=== PATIENT | female | born 1975 | race Caucasian/White ===

== ENCOUNTER 2017-01-12 07:00 | Inpatient (IN) ==
[2017-01-07 16:00] LABS: MANUAL DIFF NEEDED? NO; URINE MICRO REVIEW NEEDED? NO; URINE SOURCE CLEAN CATCH
[2017-01-07 16:05] LABS: BASO% 0.5 % (0.0-0.8); BILIRUBIN URINE NEGATIVE (NEGATIVE); BLOOD URINE NEGATIVE (NEGATIVE); COLOR YELLOW; EOS# 0.12 X1000 (0.0-0.7); EOS% 1.5 % (0.0-10.0); GLUCOSE URINE NEGATIVE (NEGATIVE); HEMATOCRIT 42.7 % (37.0-47.0); HEMOGLOBIN 14.1 g/dL (12.0-16.0); IMM GRAN# 0.02 X1000 (0.0-0.04); IMM GRAN% 0.2 % (0.0-0.5); LEUKOCYTES URINE SMALL (NEGATIVE); LYMPH# 2.16 X1000 (1.2-3.4); LYMPH% 26.7 % (20.5-51.1); MCH 29.1 PG (27-31); MCV 88.2 FL (81-99); MONO# 0.69 X1000 (0.11-0.59); MONO% 8.5 % (1.7-9.3); MPV 12.1 FL (7.4-10.4); NEUT% 62.6 % (42.2-75.2); NITRITE URINE NEGATIVE (NEGATIVE); PH URINE 6.5; PLT 203 X1000 (130-400); PROTEIN URINE NEGATIVE (NEGATIVE); RBC 4.84 XMIL (4.2-5.4); SP GRAVITY URINE 1.017; TURBIDITY URINE CLEAR (CLEAR); UR EPITHELIAL CELLS <10 /HPF (<10); URINE BACTERIA NEGATIVE /HPF; URINE RBC <10 /HPF (<10); URINE WBC <10 /HPF (<10); UROBILINOGEN URINE NORMAL (NORMAL)
--- NOTE | 2017-02-01 11:10 | HISTORY AND PHYSICAL ---
HISTORY OF PRESENT ILLNESS: Ryan is a 41-year-old, , white female, para 1, with a history of a for twin boys, being admitted at this time for a total abdominal hysterectomy with left salpingo-oophorectomy and right salpingectomy. Ryan has had an ongoing problem with abnormal bleeding, mostly in the form of menorrhagia, severe dysmenorrhea and pelvic pain. None of this has responded to any conservative approaches. She feels that she is ready to move on in the direction of the proposed procedure. We did discuss the management of both ovaries and she relates that the left side is the one that seems to give her the most issues. She would prefer to leave the right ovary, assuming we do not find anything that would be a strong indication to remove it at the time of the surgery. PAST MEDICAL HISTORY: Other than the above, also significant for tubal ligation. She has also had kidney stones and had lithotripsy. MEDICATIONS: Include Relpax p.r.n. ALLERGIES: She has no known allergies. FAMILY HISTORY: There is diabetes in her family. SOCIAL HISTORY/REVIEW OF SYSTEMS: For the most part noncontributory. PHYSICAL EXAMINATION: GENERAL: Exam is that of a well-developed, well-nourished, white female, in no acute distress. VITAL SIGNS: Stable and noted on the chart. HEENT: Unremarkable. NECK: Without nodes or thyromegaly. HEART: Regular without murmurs, gallops, or rubs. LUNGS: Clear. BREASTS: Without mass or tenderness. ABDOMEN: Soft, nontender. No masses. PELVIC: Normal external female genitalia. Vagina is clean. Cervix, no lesions. Uterus normal size, mid position. No adnexal masses. Rectovaginal normal. EXTREMITIES: Without tenderness or edema. NEUROLOGICAL: Grossly normal. ASSESSMENT: 1. Menorrhagia. 2. Abnormal uterine bleeding. 3. Dysmenorrhea. 4. Chronic pelvic pain mostly on the left side. PLAN: Total abdominal hysterectomy, left salpingo-oophorectomy and right salpingectomy. It should be noted that we did discuss the nature of the procedure. The risk involved, risk of anesthesia, other issues such as potential injury to surrounding structures, infection, hemorrhage and even . We did talk about the possibility of there being scarring around the cervix from her previous and if that were to be significant, that sometimes a supracervical hysterectomy would be done and she understood the rationale behind that. We also discussed the usual length of hospitalization, recuperation time at home and the restrictions therein, and overall, she felt well informed and I did speak with Ryan again this morning just to check and see if she had thought of any other questions regarding the surgery to be done tomorrow. Overall, again she felt well informed and had no further questions. cc: MD Too Velasquez MD
[2017-02-02] MEDS ORDERED: REGLAN ONE (05:31)
[2017-02-02] MEDS ORDERED: PEPCID ONE (05:31)
[2017-02-02] MEDS ORDERED: KEFZOL 1 GM/D5W 1 GM/50 ML IVPB ONE (05:32)
[2017-02-02] MEDS ORDERED: LR 1,000 ML ONE ×2 (05:32→09:24)
[2017-02-02] MEDS ORDERED: XYLOCAINE-MPF 2% ONE (06:37)
[2017-02-02] MEDS ORDERED: DIPRIVAN 1% ONE (06:37)
[2017-02-02] MEDS ORDERED: QUELICIN (DOSE) ONE (06:38)
[2017-02-02] MEDS ORDERED: FENTANYL ONE (07:01)
[2017-02-02] MEDS ORDERED: ZEMURON ONE (07:09)
[2017-02-02] MEDS ORDERED: ZOFRAN ONE (07:13)
[2017-02-02] MEDS ORDERED: DECADRON ONE (07:13)
[2017-02-02] MEDS ORDERED: ROBINUL ONE ×2 (07:16→07:51)
[2017-02-02 07:22] LABS: URINE MICRO REVIEW NEEDED? NO; URINE SOURCE CATH
[2017-02-02] MEDS ORDERED: TORADOL ONE (07:27)
[2017-02-02] MEDS ORDERED: EXPAREL 1.3% ONE (07:48)
[2017-02-02] MEDS ORDERED: MARCAINE 0.25% PF ONE (07:48)
[2017-02-02] MEDS ORDERED: SODIUM CHLORIDE 0.9% 20 ML ONE (07:48)
[2017-02-02] MEDS ORDERED: NEOSTIGMINE ONE (07:53)
[2017-02-02] MEDS ORDERED: SODIUM CHLORIDE 0.9% 10 ML ONE (08:27)
[2017-02-02] MEDS ORDERED: OFIRMEV 1000 MG/ISOTONIC SOLN 1,000 MG/100 ML BOTTLE ONE (08:41)
[2017-02-02] MEDS ORDERED: DILAUDID PCA VIAL ONE (08:42)
[2017-02-02] MEDS: DILAUDID ONE ×2 (08:43→08:50)
[2017-02-02] MEDS ORDERED: PHENERGAN ONE (09:01)
[2017-02-02 09:05] LABS: COLOR YELLOW; UR EPITHELIAL CELLS <10 /HPF (<10); URINE BACTERIA NEGATIVE /HPF; URINE RBC <10 /HPF (<10); URINE WBC <10 /HPF (<10)
[2017-02-02 09:06] LABS: BILIRUBIN URINE NEGATIVE (NEGATIVE); BLOOD URINE NEGATIVE (NEGATIVE); GLUCOSE URINE NEGATIVE (NEGATIVE); LEUKOCYTES URINE NEGATIVE (NEGATIVE); NITRITE URINE NEGATIVE (NEGATIVE); PH URINE 5.5; PROTEIN URINE NEGATIVE (NEGATIVE); SP GRAVITY URINE 1.019; TURBIDITY URINE CLEAR (CLEAR); UROBILINOGEN URINE NORMAL (NORMAL)
[2017-02-02] MEDS ORDERED: HYDROXYZINE PO PRN (09:26)
[2017-02-02] MEDS ORDERED: ZOFRAN IV PRN (09:26)
[2017-02-02] MEDS ORDERED: SODIUM CHLORIDE 0.9% INJ PRN (09:26)
[2017-02-02] MEDS ORDERED: BENADRYL IV PRN (09:26)
[2017-02-02] MEDS ORDERED: PHENERGAN IV PRN (09:26)
[2017-02-02] MEDS ORDERED: LR 1,000 ML IV SCH (09:26)
[2017-02-02] MEDS ORDERED: DILAUDID PCA VIAL IV PRN (09:26)
[2017-02-02] MEDS ORDERED: NARCAN 0.4 MG in LR 1,000 ML IV PRN (09:26)
[2017-02-02] MEDS ORDERED: NARCAN IV PRN (09:26)
--- NOTE | 2017-02-02 09:50 | OPERATIVE NOTE ---
PROCEDURE DATE: 02/02/2017 SURGEON: Juvenal Villalba MD. STAMPER BLOCKER: Too Hammonds MD. ANESTHESIA: General, Dr. Ruiz, who also did a tap block at the end. PREOPERATIVE DIAGNOSES: 1. Abnormal uterine bleeding, mostly in the form of menorrhagia. 2. Severe dysmenorrhea. 3. Chronic pelvic pain, mostly on the left side. PROCEDURES PERFORMED: 1. Total abdominal hysterectomy. 2. Left salpingo-oophorectomy and right salpingectomy. 3. Also, some adhesiolysis. OPERATIVE NOTE: Ryan was brought to the operating room, and after general anesthesia had been induced, she was prepped and draped in the usual sterile fashion in the supine position with a Wallace catheter in place. The abdomen was entered going through a Pfannenstiel incision in the customary manner and once the peritoneum was entered, we inserted the Gigi retractor and using 2 moist lap packs, as well as the self-retaining bladder blade, we were able to pack the bowel superiorly and out of the field of surgery and gain access to the pelvic contents. The uterus was grasped and elevated with a Rodrigo clamp. We then identified some adhesions to the left adnexa, which we took some of those down. Ultimately, we were able to visualize the infundibulopelvic ligament and using the LigaSure in a stepwise manner, we clamped, cauterized and transected our way across the infundibulopelvic ligament and on across the mesosalpinx and over to and through the round ligament on the left side. Then, the left adnexal structures were extirpated. Then on the right-hand side, we had hoped to be able to preserve her right ovary. It appeared to be normal. We elevated the fallopian tube and along the mesosalpinx, we were able to use the LigaSure again to clamp, cauterize and transect to remove the left fallopian tube. We then clamped, cauterized and transected across the uteroovarian ligament and tube to extirpate the uterus away from the right adnexa, thereby preserving the function of the right ovary. This was again carried forward to the round ligament at its attachment to the uterus and we carried it one step beyond that on each side as we approached the reflected bladder peritoneum. Hemostasis was excellent from the use of the LigaSure, and then using mostly sharp dissection, but some blunt dissection, created an incision into the reflected peritoneum and took down some bladder flap adhesions from her previous , and in a stepwise manner, mobilized the bladder down and away from the cervix. Then, Erasto clamps were placed across the uterine vessels on each side. This was then incised and suture ligated using #0 Polysorb which we employed throughout. In a stepwise manner, we continued to work our way down the paracervical tissue to clamp, transect and suture ligate the remaining paracervical attachments to the cervix and once we reached the uterosacral ligaments and ultimately into the upper angle of the vagina on each side, we tagged that stitch for identification purposes. The remainder of the vaginal attachments to the cervix were then circumscribed away using the Teodoro scissors and the specimen was then passed off the table. The anterior and posterior leafs of the vagina were then grasped with Erasto clamps, and we placed [id number] sutures on each angle, tacked to the uterosacrals for support purposes and then 3 more [id number] style stitches across the midpoint of the cervix to provide good closure, as well as hemostasis. There was one small oozing point along the edge of the bladder flap, which we controlled carefully with the electrocautery. At this point, we then irrigated the pelvic cavity a couple of times inspecting for hemostasis, which was found to be good throughout as we inspected from one pedicle to the next, from the right side to the left and back and confirmed good hemostasis throughout. At this point, the excess suture material was cut. The lap packs were removed and accounted for as was the self-retaining Gigi retractor and we then closed the abdominal incision first by reapproximating the peritoneum with a running 2-0 Polysorb. The subfascial plane was then cleaned and inspected and the fascia was run back together using 2 separate strands of #1 Polysorb, one being run from the right-hand angle over to the midpoint and the other from the left hand angle over to the midpoint. Subcutaneous layer was controlled hemostatically with the electrocautery and the skin edges were then brought together using the surgical stapler. We did undermine a small section of the left side of the incision just to flatten and even up the incision. Once this was all done and the elizabeth were in place, a sterile dry gauze pressure dressing was applied. Dr. Ruiz came in to do the TAP block. Our estimated blood loss for the procedure had been about 50 mL with 75 mL of clear urine output and Ryan tolerated the procedure well. She was awakened and transferred to the stretcher and to the recovery room in stable condition, draining clear urine in the Wallace catheter bag. It should be noted that all of our needle, sponge and instrument counts were correct at the end the case and also should be noted that I did speak with her outside of the waiting area to give him a report to let him know that she had done well. That we encountered no unexpected findings and he felt that all of his questions had been answered and that he was well informed and was pleased with the report. cc: MD Too Velasquez MD
[2017-02-02] MEDS ORDERED: RELPAX PO PRN (09:55)
[2017-02-02] MEDS: LR 1,000 ML IV SCH ×3 (11:46→23:18)
[2017-02-02] MEDS: PERIDEX MT SCH ×2 (11:46→23:18)
--- NOTE | 2017-02-02 13:13 | PROGRESS NOTE ---
DATE: 02/02/2017 Ryan is now about 5 hours status post total abdominal hysterectomy with left salpingo- oophorectomy and right salpingectomy. She is resting comfortably in her room. She did have a bout of nausea earlier, but that has been managed and she seems to be doing better at this point. Her mother and were with her. We talked about the surgery again and they felt well informed in regards to what all took place and looking forward to her continuing to make progress. Vital signs are stable. She is afebrile. Urine output is adequate and will continue as ordered for the remainder of the day and tonight with the hopes of being able to discontinue the Wallace in the morning. Also to saline lock the IV and increase her diet and her activity. She is stable postop. cc: Juvenal Villalba MD
[2017-02-02] MEDS: OFIRMEV 1000 MG/ISOTONIC SOLN 1,000 MG/100 ML BOTTLE IV SCH ×2 (17:42→23:17)
[2017-02-03] MEDS: OFIRMEV 1000 MG/ISOTONIC SOLN 1,000 MG/100 ML BOTTLE IV SCH (05:16)
[2017-02-03 06:15] LABS: HEMATOCRIT 40.5 % (37.0-47.0); HEMOGLOBIN 13.2 g/dL (12.0-16.0); MCH 29.5 PG (27-31); MCHC 32.6 g/dL (33-37); MCV 90.4 FL (81-99); MPV 12.8 FL (7.4-10.4); RBC 4.48 XMIL (4.2-5.4)
[2017-02-03] MEDS ORDERED: SALINE LOCK IV FLUID XX ONE (06:40)
[2017-02-03] MEDS: LR 1,000 ML IV SCH (06:43)
[2017-02-03] MEDS ORDERED: NORCO-10 PO PRN (07:59)
--- NOTE | 2017-02-03 09:28 | PROGRESS NOTE ---
DATE: 02/03/2017 SUBJECTIVE: Ryan is now just over 24 hours status post total abdominal hysterectomy with left salpingo-oophorectomy and right salpingectomy. She did have some problems with nausea initially yesterday but feels immensely better today. She has been able to eat some of her breakfast and consume liquids. She has also been able to void this morning since the catheter was removed earlier. OBJECTIVE: She is afebrile and has had stable vital signs. Abdomen is soft. She reports no vaginal bleeding. Urine output was good throughout the night and clear. Hematocrit this morning is good at 40.5. Overall, she seemed to be doing well. She is going to try to get up and move around some this morning, maybe walking in the hallways, consuming plenty of liquids. She seems to be interested in wanting to go home later today, and I will revisit her up around the lunch time hour to see how things are going and, if things are such that she can be discharged to home, then we will go over all the instructions and make arrangements to move in that direction. She is stable postop. cc: Juvenal Villalba MD
[2017-02-03] MEDS: PERIDEX MT SCH (09:43)
[2017-02-03 11:43] VITALS: BP 130/62
--- NOTE | 2017-02-03 13:51 | PROGRESS NOTE ---
DATE: 02/03/2017 SUBJECTIVE: Ryan is approaching a day and a half status post total abdominal hysterectomy with left salpingo-oophorectomy and right salpingectomy. She has done well this morning. She has been able to consume solid foods without nausea, consuming plenty of liquids. Has remained afebrile with stable vital signs. The dressing was removed and the abdomen is soft and the incision is clean and dry. She is voiding without any difficulties. Labs previously noted. She feels she is ready to be discharged to home to the care of her family. Her mother and her were both aware of when we went over instructions and will plan to see Ryan in the office next used here Wednesday, whichever is more convenient for her for staple removal in her first postop check. She will have a prescription for [place] 10, #36, 1/2 to 1 tab p.o. q 4-6 hours as needed for pain. Also Zofran 4 mg, #12 one tablet every 4-6 hours as needed for nausea just as a precaution. Overall, she felt well informed in regards to instructions. Again feels that she is ready to go home and she knows to call if there is any questions or problems. We did go over instructions regarding lifting, driving, and intimacy and she acknowledged those and will plan to see her next week. She is stable postop and will be discharged to home this afternoon to the care of her family. cc: MD Jeffrey Velasquez MD
== END 2017-02-03 13:50 | disposition home or self-care (01) ==
LOC: SURHOLD 02-02 03:22 → 4N 02-02 08:50
PROVIDERS: ADMIT Obstetrics & Gynecology; ATTEND Obstetrics & Gynecology